=== PATIENT | female | born 2000 | race Two or more races ===

== ENCOUNTER 2024-08-03 10:52 | Emergency (ER) | payer BC, OTHER ==
[~2024-08-03] VITALS: Ht 167.6 cm; Wt 83.6 kg
[2024-08-03] MEDS ORDERED: ZOFR4T PO (13:02)
--- NOTE | 2024-08-03 13:13 | ED.PDOC ---
History of Present Illness HPI Comments 24-year-old female presents with complaint of left sided headache and transient amnesia status post head injury, yesterday. Patient endorses on hitting the left side of her head against the wall at around 4:00 p.m., yesterday, and, nearly, losing consciousness then. She comments on forgetting things, such as her name, time, or place. She denies any weakness, dizziness, numbness, tingling, or other associated symptoms or modifiers at this time. 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 Hx Family History Family History: Unknown Social History Smoker: Non-Smoker Alcohol: Denies ETOH Use Drugs: Denies Drug Use Lives In: Home Neurological: reports: headache, others (Transient amnesia) All Other Systems: Reviewed and Negative (Negative unless otherwise stated above or in HPI) Physical Exam General Appearance: No Apparent Distress, Normal HEENT: Normal ENT Inspection, Pharynx Normal, TMs Normal Neck: Full Range of Motion, Non-Tender, Normal, Normal Inspection Respiratory: Chest Non-Tender, Lungs Clear, No Accessory Muscle Use, No Respiratory Distress, Normal Breath Sounds Cardiovascular: No Edema, No JVD, No Murmur, No Gallop, Normal Peripheral Pulses, Regular Rate/Rhythm Breast Exam: Deferred Gastrointestinal: No Organomegaly, Non Tender, No Pulsatile Mass, Normal Bowel Sounds, Soft Genitalia: Deferred Pelvic: Deferred Rectal: Deferred Extremities: No calf tenderness, Normal capillary refill, Normal inspection, Normal range of motion, Non-tender, No pedal edema Musculoskeletal : Apperance: Normal Neurologic: Alert, german instructor II-XII nml as Tested, No Motor Deficits, Normal Affect, Normal Mood, No Sensory Deficits Cerebellar Function: Normal Reflexes: Normal Skin: Dry, Normal Color, Warm Lymphatic: No Adenopathy Was a procedure done? Was a procedure done?: No Differential Dx Considerations may include: Concussion, head trauma, closed head injury, encephalopathy, intracranial bleed, X-Ray, Labs, Meds, VS Vital Signs Date Time Temp Pulse Resp B/P (MAP) Pulse Ox O2 Delivery O2 Flow Rate FiO2 08/03/24 13:17 57 16 98 Room Air* 0 21 08/03/24 13:16 97.9 57 16 123/69 (87) 98 97.9 08/03/24 11:17 98.9 72 19 141/75 (97) 100 Time of 1ST Reevaluation: 12:30 Reevaluation 1ST: Unchanged Patient Education/Counseling: Diagnosis, Treatment Family Education/Counseling: No Family Present Departure 1 Departure Time of Disposition: 17:39 Impression: Primary Impression: Concussion Additional Impression: Head trauma Disposition: 01 HOME / SELF CARE / HOMELESS Condition: Stable e-Prescriptions Ondansetron Odt 4MG Tab (ZOFRAN PO) 4 Mg Tb 4 MG PO QID for 10 Days, #40 TAB ODT TAB-DISSOLVE IN MOUTH, THEN SWALLOW Prov: HAILE BLANK MD 08/03/24 Discharged With: Self Critical Care Note Critical Care Time?: No Stability Stability form required: No Heart Score Heart Score: Heart Score Response (Comments) Value History N/A 0 EKG N/A 0 Age N/A 0 Risk Factors N/A 0 Troponin N/A 0 Total 0 I personally scribed for HAILE BLANK MD ([email or web address]) on 08/03/24 at 13:13. Electronically submitted by Ronnell Topete ([email or web address]). HAILE BLANK MD Aug 03, 2024 13:13
[2024-08-03 13:16] VITALS: BP 123/69; TEMP 97.9
[2024-08-03 13:17] VITALS: PULSE 57; RESP 16; O2SAT 98
== END 2024-08-03 13:21 | disposition home or self-care (01) ==
LOC: ER 10:52
DX: S00.80XA Unspecified superficial injury of other part of head, initial encounter (principal); S06.0XAA Concussion with loss of consciousness status unknown, initial encounter; Z88.0 Allergy status to penicillin; W22.8XXA Striking against or struck by other objects, initial encounter; Y93.89 Activity, other specified; Y92.89 Other specified places as the place of occurrence of the external cause; Y99.8 Other external cause status

== ENCOUNTER 2024-08-27 21:01 | Emergency (ER) | payer BC ==
[~2024-08-27 21:01] MED LIST: ZOFR4T PO
== END 2024-08-27 22:43 | disposition left against medical advice (07) ==
LOC: ER 21:01
DX: R82.90 Unspecified abnormal findings in urine (principal); Z53.21 Procedure and treatment not carried out due to patient leaving prior to being seen by health care provider